=== PATIENT | female | born 1960 | race Caucasian/White ===

== ENCOUNTER 2021-05-04 12:20 | Emergency (ER) | payer OTHER ==
[~2021-05-04] VITALS: Ht 172.7 cm; Wt 68.0 kg
[2021-05-04 12:31] VITALS: BP 139/69
== END 2021-05-04 15:05 | disposition home or self-care (01) ==
LOC: ER 12:21
DX: T63.441A Toxic effect of venom of bees, accidental (unintentional), initial encounter (principal); Z72.89 Other problems related to lifestyle; Y92.89 Other specified places as the place of occurrence of the external cause
CPT/HCPCS: 99281